=== PATIENT | female | born 1955 | race Caucasian/White ===

== ENCOUNTER 2018-02-12 18:04 | Emergency (ER) | payer OTHER ==
[~2018-02-12] VITALS: Ht 167.6 cm; Wt 72.6 kg
[~2018-02-12 18:04] MED LIST: AMITIZA24 MCG PO; CELEBREX100 MG PO; EFFEXOR XR150 MG PO; ESTRADIOL0.5 MG PO; LEVOTHYROXINE75 MCG PO; NUVIGIL150 MG PO; SEROQUEL100 MG PO; TRIAMTERENE-HCTZ1 EA PO
[2018-02-12] MEDS ORDERED: HYDROCODONE/APAP 7.5MG-325MG 1 EA TAB PO PRN (18:30)
[2018-02-12 20:53] LABS: BASOPHILS % 0.6 % (0.0-1.0); EOSINOPHILS # (AUTO) 0.1 (0.0-0.4); EOSINOPHILS % 1.5 % (0.0-6.0); HEMATOCRIT 39.1 % (34.2-44.1); HEMOGLOBIN 13.1 g/dL (12.0-16.0); LYMPHOCYTES # (AUTO) 1.9 (1.0-3.2); LYMPHOCYTES % 27.3 % (18.0-39.1); MEAN CORPUSCULAR HEMOGLOBIN 31.9 pg (28-32); MEAN CORPUSCULAR HGB CONC 33.5 g/dL (31-35); MEAN CORPUSCULAR VOLUME 95.1 fL (81-99); MONOCYTES # (AUTO) 0.7 (0.2-0.8); MONOCYTES % 9.6 % (4.4-11.3); NEUTROPHILS # (AUTO) 4.2 (2.1-6.9); NEUTROPHILS % 60.7 % (38.7-80.0); PLATELET COUNT 261 x10e3/uL (140-360); RED BLOOD COUNT 4.11 x10e6/uL (3.6-5.1); RED CELL DISTRIBUTION WIDTH 13.1 % (11.7-14.4)
[2018-02-12 21:13] LABS: ALANINE AMINOTRANSFERASE 16 IU/L (0-55); ALBUMIN 3.6 g/dL (3.5-5.0); ALBUMIN/GLOBULIN RATIO 0.9 (0.8-2.0); ALKALINE PHOSPHATASE 73 IU/L (40-150); ANION GAP 11.4 mmol/L (8-16); BLOOD UREA NITROGEN 13 mg/dL (7-26); BUN/CREATININE RATIO 18 (6-25); CALCIUM 9.5 mg/dL (8.4-10.2); CARBON DIOXIDE 28 mmol/L (22-29); CHLORIDE 101 mmol/L (98-107); CREATININE, SERUM 0.72 mg/dL (0.57-1.11); EST GLOMERULAR FILTRATION RATE > 60 ML/MIN (60-); GLUCOSE 87 mg/dL (74-118); POTASSIUM 3.4 mmol/L (3.5-5.1); SODIUM 137 mmol/L (136-145)
[2018-02-12] MEDS ORDERED: SODIUM CHLORIDE 0.9% 50ML 50 ML ONE (21:40)
[2018-02-12] MEDS ORDERED: IOPAMIDOL 370 MG/ML 200 ML INFUS..BTL INJ ONE (21:41)
--- NOTE | 2018-02-12 22:16 | Diagnostic Imaging Report ---
Exam: Right hand CT with IV contrast Indication: Right hand cellulitis Comparison: None Findings: CT of the right hand using routine MSK protocol was performed after the administration of 100 cc Isovue-370. Sagittal and coronal reformations were provided for evaluation. Cystic degenerative changes of the wrist and metacarpal interphalangeal joints, predominantly of the first metacarpal interphalangeal joint. No fractures. No radiopaque foreign bodies. No evidence of an abscess. Small joint effusion first metacarpal interphalangeal joint. Impression: 1. No evidence of an abscess. 2. Cystic degenerative changes of the wrist, most prominent at the first metacarpocarpal joint with associated small joint effusion. Signed by: Dr. Charmaine Ambrocio M.D. on 02/12/2018 10:12 PM
[2018-02-12 22:31] VITALS: BP 149/81
== END 2018-02-12 22:42 | disposition home or self-care (01) ==
LOC: ER 18:04
DX: L03.113 Cellulitis of right upper limb (principal)
CPT/HCPCS: 36415; 73201; 80053; 84550; 85025; 99284; Q9967

== ENCOUNTER → 2018-03-27 | Outpatient (CLI) | payer OTHER ==
--- NOTE | 2018-03-27 14:32 | Diagnostic Imaging Report ---
PROCEDURE:US GALLBLADDER COMPARISON:[facility], US, US GALLBLADDER, 01/03/2013, 11:35. INDICATIONS:RUQ Pain for months TECHNIQUE: Broussard-scale and color doppler transverse and longitudinal images of the right upper quadrant of the abdomen were obtained. FINDINGS: Liver: 14.2 cm in right mid-clavicular line. Normal echogenicity. No masses. Main portal vein: 0.9 cm, hepatopetal flow Gallbladder: Mild mobile, echogenic non-shadowing debris is noted in the gallbladder lumen, which may represent a small amount of sludge. No echogenic stones. No wall thickening or pericholecystic fluid. Common Bile Duct: 0.3 cm Sonographic Alonso's sign: Negative Right kidney: 9.7 cm. Normal echogenicity. No solid masses or hydronephrosis. Pancreas: The visualized portions of the neck and proximal body are unremarkable. Inferior vena cava: Patent Aorta: Within normal limits Ascites: None in the right upper quadrant of the abdomen. CONCLUSION: 1. Findings likely represent minimal gallbladder sludge. No echogenic stones, wall thickening, or pericholecystic fluid. No sonographic evidence of cholecystitis. Sb Charlton M.D. Dictated by: Sb Charlton M.D. on 03/27/2018 at 14:35 Electronically approved by: Sb Charlton M.D. on 03/27/2018 at 14:35
== END ==
LOC: US 13:51
PROVIDERS: ATTEND Internal Medicine Gastroenterology
DX: R10.11 Right upper quadrant pain (principal)
CPT/HCPCS: 76705

== ENCOUNTER → 2018-03-29 | Outpatient (CLI) | payer OTHER ==
[~2018-03-29] MED LIST changes: +SINCALIDE 3 MCG/VIAL INJ ONE
--- NOTE | 2018-03-29 16:59 | Diagnostic Imaging Report ---
Hepatobiliary Scan: RUQ abdominal pain Report: Following intravenous administration of 6.1 millicuries of Tc-99m mebrofenin, dynamic images of the abdomen in the anterior projection were obtained through 55 minutes. Sincalide (CCK analog) 1.6 micrograms was administered intravenously over 30 minutes with additional imaging for determination of gallbladder ejection fraction. Perfusion to the liver is normal. Extraction of tracer from the blood pool by the liver parenchyma is normal. Tracer is seen promptly within the biliary tract. The gallbladder begins to fill by 45 minutes post-injection of tracer and fills adequately. Tracer is seen in the small bowel by 15 minutes. The gallbladder ejection fraction with administration of sincalide is 68% (normal greater than 40%). Impression: 1. Filling of the gallbladder excludes the diagnosis of acute cystic duct obstruction/acute cholecystitis. 2. Normal gallbladder ejection fraction of 68% does not support the clinical diagnosis of chronic cholecystitis/gallbladder dyskinesia. Signed by: Dr. Aleyda Hawthorne M.D. on 03/29/2018 4:56 PM
== END ==
LOC: NM 07:33
PROVIDERS: ATTEND Internal Medicine Gastroenterology
DX: R10.11 Right upper quadrant pain (principal)
CPT/HCPCS: 78227; A9537; J2805

== ENCOUNTER 2019-07-13 15:24 | Observation (INO) | payer OTHER ==
[~2019-07-13] VITALS: Ht 167.6 cm; Wt 73.9 kg
[~2019-07-13 15:24] MED LIST changes: -SINCALIDE 3 MCG/VIAL INJ ONE
--- OUTSIDE RECORDS SUMMARY | 2019-07-13 15:28 | XMS REPORT | Continuity of Care Document ---
Author Author [facility] Address Unknown Phone Unavailable Care Team Providers Care Retail Supervisor Name Role Phone Expert TA Information [employer] Unavailable Unavailable Problems Problem Status Onset Date Classification Date Reported Comments Source Polyarthralgia Active Problem 05/29/2014 Braden Rios Unspecified vitamin D deficiency Active Diagnosis 04/25/2014 Braden Rios Pain in joint, hand Active Diagnosis 04/25/2014 Braden Rios Pain in joint, pelvic region and thigh Active Diagnosis 04/25/2014 Braden Rios Medications Medication Details Route Status Patient Instructions Ordering Provider Order Date Source Cyclobenzaprine HCl 1 tablet Orally Active 10 MG Orally Three times a day Janay Rios Seroquel 1 tablet at bedtime Orally Active 100 MG Orally Once a day Janay Rios Amitiza 1 capsule with food Orally Active 24 MCG Orally Twice a day Janay Rios Celebrex 1 capsule Orally Active 200 MG Orally Once a day Janay Rios Estradiol 1 tablet Orally Active 2 MG Orally Daily for Three Weeks, 1 Week off Janay Rios Effexor XR 1 capsule with food Orally Active 150 MG Orally Once a day Janay Rios Allergies, Adverse Reactions, Alerts Substance Category Reaction Severity Reaction type Status Date Reported Comments Source N.K.D.A. Adverse Reaction Info Not Available Adverse Reaction Active 04/16/2014 Braden Rios Immunizations No Data Provided for This Section Results No Data Provided for This Section Pathology Reports No Data Provided for This Section Diagnostic Reports No Data Provided for This Section Consultation Notes No Data Provided for This Section Discharge Summaries No Data Provided for This Section History and Physicals No Data Provided for This Section Vital Signs Vital Sign Value Date Comments Source Weight 169 04/16/2014 Braden Rios Height 65 04/16/2014 Braden Rios Temperature Oral (F) 97.6 F 04/16/2014 Braden Rios Heart Rate 80 04/16/2014 Braden Rios Diastolic (mm Hg) 84 04/16/2014 Braden Rios Systolic (mm Hg) 116 04/16/2014 Braden Rios Encounters Location Location Details Encounter Type Encounter Number Reason For Visit Attending Provider ADM Date DC Date Status Source Kris Rios MD [facility] [id number] 04/16/2014 04/16/2014 Braden Rios MD [facility] [id number] 04/16/2014 04/16/2014 Braden Rios MD PT DENIED APPT [id number] 05/23/2014 05/23/2014 Braden Rios Procedures No Data Provided for This Section Assessment and Plan No Data Provided for This Section Plan of Care No Data Provided for This Section Social History Social History Date Source Social History ElementQualifiersDate Reported Tobacco Use: . Are you a:: former smoker , How long has it been since you last smoked?: > 10 years April 16, 2014 Caffeine: yes. 1-2, cups/day April 16, 2014 Exercise: yes. Stationary Bike April 16, 2014 Alcohol: socially. April 16, 2014 04/16/2014 Braden Rios Family History No Data Provided for This Section Advance Directives No Data Provided for This Section Functional Status No Data Provided for This Section
--- OUTSIDE RECORDS SUMMARY | 2019-07-13 15:28 | XMS REPORT ---
Author Author Kris Rios [facility] [employer] Address Unknown Phone Unavailable Care Team Providers Care Seo Expert Name Role Phone Kris Rios Unavailable Encounters Encounter Location Date [facility] Kris Rios MD April 16, 2014 PT DENIED APPT Kris Rios MD May 23, 2014 Problems Problem Type Condition ICD-9 Code Onset Dates Condition Status Problem Polyarthralgia 719.49 Active Social History Social History Element Qualifiers Date Reported Tobacco Use: . Are you a:: former smoker , How long has it been since you last smoked?: > 10 years April 16, 2014 Caffeine: yes. 1-2, cups/day April 16, 2014 Exercise: yes. Stationary Bike April 16, 2014 Alcohol: socially. April 16, 2014 Summary Purpose eClinicalWorks Submission
--- OUTSIDE RECORDS SUMMARY | 2019-07-13 15:28 | XMS REPORT ---
Author Author [facility] Address Unknown Phone Unavailable Care Team Providers Care Regulatory Affairs Strategy Specialist Name Role Phone FELIPE ABURTO Unavailable Unavailable Lolis RAYMUNDO Unavailable Unavailable Problems This patient has no known problems. Allergies, Adverse Reactions, Alerts This patient has no known allergies or adverse reactions. Medications This patient has no known medications. Results Test Description Test Time Test Comments Text Results Atomic Results Result Comments HEPTOBILIARY W PHARM 2018-03-29 16:54:00 [place] [address] Patient Name: KAISER NORRIS MR #: [id number] : 1955 Age/Sex: 62/F Req #: [id number] Adm Physician: Ordered by: FELIPE ABURTO MD Report #: [id number] Location: [place] Room/Bed: Procedure: [id number] NM/HEPTOBILIARY W PHARM Exam Date: 03/29/18 Exam Time: 0815 REPORT STATUS: Signed Hepatobiliary Scan: RUQ abdominal pain Report: Following intravenous administration of 6.1 millicuries of Tc-99m mebrofenin, dynamic images of the abdomen in the anterior projection were obtained through 55 minutes. Sincalide (CCK analog) 1.6 micrograms was administered intravenously over 30 minutes with additional imaging for determination of gallbladder ejection fraction. Perfusion to the liver is normal. Extraction of tracer from the blood pool by the liver parenchyma is normal. Tracer is seen promptly within the biliary tract. The gallbladder begins to fill by 45 minutes post-injection of tracer and fills adequately. Tracer is seen in the small bowel by 15 minutes. The gallbladder ejection fraction with administration of sincalide is 68% (normal greater than 40%). Impression: 1. Filling of the gallbladder excludes the diagnosis of acute cystic duct obstruction/acute cholecystitis. 2. Normal gallbladder ejection fraction of 68% does not support the clinical diagnosis of chronic cholecystitis/gallbladder dyskinesia. Signed by: Dr. Carie Hawthorne M.D. on 03/29/2018 4:56 PM Dictated By: CARIE HAWTHORNE MD 55 Transcribed By: DARLENE on 03/29/181655 COPY TO: FELIPE ABURTO MD US GALLBLADDER 2018-03-27 14:35:00 [place] [address] Patient Name: KAISER NORRIS MR #: [id number] : 1955 Age/Sex: 62/F Req #: [id number] Adm Physician: Ordered by: FELIPE ABURTO MD Report #: [id number] Location: Room/Bed: Procedure: [id number] US/US GALLBLADDER Exam Date: Exam Time: REPORT STATUS: Signed PROCEDURE: US GALLBLADDER COMPARISON: [facility], US, US GALLBLADDER, 01/03/2013, 11:35. INDICATIONS: RUQ Pain for months TECHNIQUE: Broussard- scale and color doppler transverse and longitudinal images of the right upper quadrant of the abdomen were obtained. FINDINGS: Liver: 14.2 cm in right mid-clavicular line. Normal echogenicity. No masses. Main portal vein: 0.9 cm, hepatopetal flow Gallbladder: Mild mobile, echogenic non- shadowing debris is noted in the gallbladder lumen, which may represent a small amount of sludge. No echogenic stones. No wall thickening or pericholecystic fluid. Common Bile Duct: 0.3 cm Sonographic Alonso's sign: Negative Right kidney: 9.7 cm. Normal echogenicity. No solid masses or hydronephrosis. Pancreas: The visualized portions of the neck and proximal body are unremarkable. Inferior vena cava: Patent Aorta: Within normal limits Ascites: None in the right upper quadrant of the abdomen. CONCLUSION: 1. Findings likely represent minimal gallbladder sludge. No echogenic stones, wall thickening, or pericholecystic fluid. No sonographic evidence of cholecystitis. Alyse Charlton M.D. Dictated b y: Alyse Charlton M.D. on 03/27/2018 at 14:35 Electronically approved by: Alyse Charlton M.D. on 03/27/2018 at 14:35 Dictated By: ALYSE CHARLTON MD 1435 Transcribed By: DAVID on 03/27/18 1435 COPY TO: FELIPE ABUROT MD CT HAND RIGHT W [place] [address] Patient Name: KAISER NORRIS MR #: [id number] : 1955 Age/Sex: 62/F Req #: [id number] Adm Physician: Ordered by: HALEY CRUMP PROJECT PRODUCT MANAGER Report #: [id number] Location: ER Room/Bed: Procedure: [id number] CT/CT HAND RIGHT W Exam Date: Exam Time: REPORT STATUS: Signed Exam: Right hand CT with IV contrast Indication: Right hand cellulitis Comparison: None Findings: CT of the right hand using routine MSK protocol was performed after the administration of 100 cc Isovue-370. Sagittal and coronal reformations were provided for evaluation. Cystic degenerative changes of the wrist and metacarpal interphalangeal joints, predominantly of the first metacarpal interphalangeal joint. No fractures. No radiopaque foreign bodies. No evidence of an abscess. Small joint effusion first metacarpal interphalangeal joint. Impression: 1. No evidence of an abscess. 2. Cystic degenerative changes of the wrist, most prominent at the first metacarpocarpal joint with associated small joint effusion. Signed by: Dr. Unruly Saini M.D. on 02/12/2018 10:12 PM Dictated By: UNRULY SAINI MD 11 Transcribed By: DARLENE on 02/12/182211 COPY TO: HALEY CRUMP NP
--- OUTSIDE RECORDS SUMMARY | 2019-07-13 15:28 | XMS REPORT ---
Author Author Olivier Gustafson Organization [employer] Address Unknown Phone Unavailable Care Team Providers Care Diet Clerk Name Role Phone Olivier Gustafson CP Unavailable Allergies, Adverse Reactions, Alerts Substance Reaction Event Type N.K.D.A. Info Not Available Non Drug Allergy Encounters Encounter Location Date [facility] Kris Rios MD April 16, 2014 Problems Problem Type Condition ICD-9 Code Onset Dates Condition Status Assessment Polyarthralgia 719.49 Active Assessment Unspecified vitamin D deficiency 268.9 Active Problem Polyarthralgia 719.49 Active Assessment Pain in joint, hand 719.44 Active Assessment Pain in joint, pelvic region and thigh 719.45 Active Medications Medication Code System Code Instructions Start Date End Date Status Dosage Cyclobenzaprine HCl [facility] [address]-32 10 MG Orally Three times a day Active 1 tablet Seroquel [facility] [address]-50 100 MG Orally Once a day Active 1 tablet at bedtime Amitiza [facility] [address]-13 24 MCG Orally Twice a day Active 1 capsule with food Celebrex [facility] [address]-47 200 MG Orally Once a day Active 1 capsule Estradiol [facility] [address]-70 2 MG Orally Daily for Three Weeks, 1 Week off Active 1 tablet Effexor XR [facility] [address]-70 150 MG Orally Once a day Active 1 capsule with food Social History Social History Element Qualifiers Date Reported Tobacco Use: . Are you a:: former smoker , How long has it been since you last smoked?: > 10 years April 16, 2014 Caffeine: yes. 1-2, cups/day April 16, 2014 Exercise: yes. Stationary Bike April 16, 2014 Alcohol: socially. April 16, 2014 Vital Signs Date/Time: April 16, 2014 Weight 169 lbs Height 65 in Temperature 97.6 F Cardiac Monitoring Heart Rate 80 /min Blood Pressure Diastolic 84 mm Hg Blood Pressure Systolic 116 mm Hg Summary Purpose eClinicalWorks Submission
[2019-07-13] MEDS ORDERED: SODIUM CHLORIDE 0.9% 1000ML 1,000 ML IV STA (16:23)
[2019-07-13 16:40] LABS: BASOPHILS % 0.4 % (0.0-1.0); EOSINOPHILS # (AUTO) 0.1 (0.0-0.4); EOSINOPHILS % 1.6 % (0.0-6.0); HEMATOCRIT 40.5 % (34.2-44.1); LYMPHOCYTES # (AUTO) 1.8 (1.0-3.2); LYMPHOCYTES % 24.1 % (18.0-39.1); MEAN CORPUSCULAR HEMOGLOBIN 32.3 pg (28-32); MEAN CORPUSCULAR HGB CONC 34.6 g/dL (31-35); MEAN CORPUSCULAR VOLUME 93.5 fL (81-99); MONOCYTES # (AUTO) 0.6 (0.2-0.8); MONOCYTES % 7.8 % (4.4-11.3); NEUTROPHILS # (AUTO) 4.9 (2.1-6.9); NEUTROPHILS % 65.8 % (38.7-80.0); PLATELET COUNT 262 x10e3/uL (140-360); RED BLOOD COUNT 4.33 x10e6/uL (3.6-5.1); RED CELL DISTRIBUTION WIDTH 12.7 % (11.7-14.4)
[2019-07-13 16:53] LABS: ALANINE AMINOTRANSFERASE 63 IU/L (0-55); ALBUMIN 3.9 g/dL (3.5-5.0); ALKALINE PHOSPHATASE 82 IU/L (40-150); BLOOD UREA NITROGEN 19 mg/dL (7-26); BUN/CREATININE RATIO 21 (6-25); CALCIUM 10.4 mg/dL (8.4-10.2); CARBON DIOXIDE 26 mmol/L (22-29); CHLORIDE 102 mmol/L (98-107); CREATINE KINASE 132 IU/L (29-168); CREATININE, SERUM 0.89 mg/dL (0.57-1.11); EST GLOMERULAR FILTRATION RATE > 60 ML/MIN (60-); GLUCOSE 107 mg/dL (74-118); SODIUM 139 mmol/L (136-145)
[2019-07-13 17:02] LABS: BILIRUBIN,URINE NEGATIVE (NEGATIVE); CLARITY,URINE SL CLOUDY (CLEAR); COLOR,URINE YELLOW (YELLOW); KETONES,URINE NEGATIVE (NEGATIVE); LEUKOCYTE ESTERASE ,URINE NEGATIVE (NEGATIVE); NITRITE,URINE NEGATIVE (NEGATIVE); PROTEIN,URINE DIPSTICK NEGATIVE (NEGATIVE); URINE UROBILINOGEN 0.2 mg/dL (0.2 - 1)
[2019-07-13 17:11] LABS: BACTERIA,URINE FEW /HPF; EPITHELIAL CELLS,URINE FEW /LPF; RBC,URINE 0-5 /HPF (0-5); WBC,URINE (MAN) 0-5 /HPF (0-5)
[2019-07-13] MEDS ORDERED: MORPHINE SULFATE INJ 4 MG/ML INJ 1ML IV PRN (18:30)
[2019-07-13] MEDS ORDERED: ONDANSETRON HCL INJ 2MG/ML 2ML 2 MG/ML VIAL IV PRN (18:30)
--- OUTSIDE RECORDS SUMMARY | 2019-07-13 18:33 | XMS REPORT | Continuity of Care Document ---
Author Author [facility] Address Unknown Phone Unavailable Care Team Providers Care In Processing Instructor Name Role Phone [employer] Information [employer] Unavailable Unavailable Problems Problem Status Onset Date [...] Status Source Kris Rios MD [facility] [id number] 04/16/2014 04/16/2014 Braden Rios MD [facility] [id number] 04/16/2014 04/16/2014 Braden Rios MD PT DENIED APPT [id number] 05/23/2014 05/23/2014 Braden Rios Procedures No Data [...]
--- NOTE | 2019-07-13 18:34 | Diagnostic Imaging Report ---
EXAMINATION: CHEST SINGLE (PORTABLE) INDICATION: Hypertension, dizziness COMPARISON: None FINDINGS: AP view TUBES and LINES: None. LUNGS: Lungs are well inflated. Lungs are clear. There is no evidence of pneumonia or pulmonary edema. PLEURA: No pleural effusion or pneumothorax. HEART AND MEDIASTINUM: The cardiomediastinal silhouette is unremarkable. BONES AND SOFT TISSUES: No acute osseous lesion. Soft tissues are unremarkable. UPPER ABDOMEN: No free air under the diaphragm. IMPRESSION: No acute thoracic radiographic abnormality. Signed by: Shankar Ramirez DO on 07/13/2019 6:31 PM
--- NOTE | 2019-07-13 19:54 | Diagnostic Imaging Report ---
EXAMINATION: Head CT HISTORY: Dizziness, hypertension COMPARISON: None. TECHNIQUE: Multidetector axial images were obtained without contrast from the foramen magnum to the vertex . The images were reconstructed using brain and bone algorithms. Thin section brain images were reformatted into coronal and sagittal planes. Image quality: Motion/streaking artifact limits the evaluation of the skull base and posterior cranial fossa. Dose modulation, iterative reconstruction, and/or weight based adjustment of the mA/kV was utilized to reduce the radiation dose to as low as reasonably achievable. FINDINGS: Parenchyma: 1. No abnormal densities. 2. No mass or hemorrhage. No CT evidence of acute territorial vascular insult. Extra-axial spaces:No abnormal density. No extra-axial fluid collections Brain volume: Normal for age. Ventricles: No hydrocephalus or displacement. Arteries: No density suggestive of thrombus. Dural sinuses: No abnormal density. Extra-axial spaces: No abnormal density. Foramen magnum: No mass, Chiari malformation, or basilar invagination. Sella: No obvious mass. Paranasal/mastoid sinuses: Imaged portions unremarkable. Skull/Scalp: No lytic or blastic lesions. No fractures. IMPRESSION: No acute intracranial abnormalities, particularly no hemorrhage. Signed by: Dr. Lorelei Gardner M.D. on 07/13/2019 7:50 PM
--- NOTE | 2019-07-13 20:03 | NUR ---
PT ARRIVED BY WHEELCHAIR TO ROOM 110. PT IS AAOX3, RR EVEN AND NON-LABORED, ON ROOM AIR. NO S/SX OF DISTRESS NOTED. ORIENTED PT TO HOSPITAL ROOM, CALL LIGHT, PHONE, BED CONTROLS AND LIGHTS. LEFT PT LAYING SEMI FOWLERS IN BED, BED IN LOW LOCKED POSITION, SIDE RAILS UPX2, CALL LIGHT AND PHONE WITHIN REACH. FAMILY AT BEDSIDE.
--- NOTE | 2019-07-13 20:59 | NUR ---
PAGE PLACED FOR MD RAHMAN CONCERNING CONSULTATION. SPOKE WITH MD VARGAS CONCERNING CONSULTATION. NO NEW ORDERS AT THIS TIME.
[2019-07-13 21:00] VITALS: BP 160/83
[2019-07-13 22:00] VITALS: BP 160/83
[2019-07-13] MEDS ORDERED: LEVOTHYROXINE50 MCG PO (23:14)
[2019-07-13] MEDS ORDERED: LUNESTA2 MG PO (23:14)
[2019-07-13] MEDS ORDERED: PANTOPRAZOLE SO40 MG PO (23:14)
[2019-07-13] MEDS ORDERED: OXYBUTYNIN CHLOR5 MG PO (23:14)
[2019-07-13] MEDS ORDERED: IMITREX25 MG PO (23:14)
[2019-07-14 01:18] VITALS: BP 165/83
[2019-07-14 03:25] LABS: CREATINE KINASE 84 IU/L (29-168)
[2019-07-14 05:24] VITALS: BP 125/81
[2019-07-14 07:45] VITALS: BP 143/75
[2019-07-14 09:32] VITALS: BP 143/75
[2019-07-14 10:45] LABS: CREATINE KINASE 75 IU/L (29-168)
[2019-07-14 11:53] VITALS: BP 156/81
[2019-07-14] MEDS ORDERED: CELECOXIB 100 MG CAP PO PRN (12:45)
[2019-07-14] MEDS ORDERED: SUMATRIPTAN SUCCINATE 25 MG TAB PO PRN (12:45)
[2019-07-14] MEDS ORDERED: CELECOXIB 200 MG CAP PO PRN (14:00)
--- NOTE | 2019-07-14 14:17 | NUR ---
Per Dr. Hughes, cardiology, ok to discharge. Instructions to follow up with Dr. Beltran in 1 week.
--- NOTE | 2019-07-14 14:52 | NUR ---
Patient discharged via wheelchair to private auto in no signs of distress and no reports of pain.
--- NOTE | 2019-07-14 15:15 | NUR ---
Visit made by the Spiritual Care Department Pastoral Visitor, Heriberto Colmenares. PV provided pastoral presence, prayer, communion, hospitality, and supportive listening. Pastoral Visitor informed pt/family of the scope of Health Sciences Manager Services and availability. FRIDA BRICENO Batch Plant Operator Spiritual Care Department O: [phone] Pager: [phone] ([phone] number calling from)
--- NOTE | 2019-07-14 16:52 | Consultation ---
DATE OF CONSULTATION: 07/14/2019 Cardiology Consultation REQUESTING PHYSICIAN: Dr. Ledesma. REASON FOR CONSULTATION: Chest pain. HISTORY OF PRESENT ILLNESS: This is a 64-year-old woman with history of esophageal spasm, hyperlipidemia, and hypothyroidism, who presents with complaints of elevated blood pressure and chest pain. The patient reports she had shortness of breath and dizziness yesterday morning, which progressed through the day. Later in the day, she subsequently developed chest discomfort, which is described as a central twisting discomfort 6/10 in severity that lasted few minutes. She attributed this to her known esophageal spasm, which has been ongoing, which has been present for years. During this time she checked her blood pressure, noted it was elevated to the 180 systolic and therefore presented to the ER for further evaluation. Denies any orthopnea or PND, but does note she has had lower extremity edema with prolonged standing for the last few months. REVIEW OF SYSTEMS: Negative except as per HPI. PAST MEDICAL HISTORY: 1. Esophageal spasm. 2. Hyperlipidemia. 3. Hypothyroidism. PAST SURGICAL HISTORY: 1. Hysterectomy. 2. Knee surgery. 3. section. ALLERGIES: PLEASE SEE EMR. MEDICATIONS: Please see medication list. SOCIAL HISTORY: Reports a remote history of tobacco use. Occasional alcohol. No illicit drugs. FAMILY HISTORY: Pertinent for father with myocardial infarction and congestive heart failure as well as brother with myocardial infarction. PHYSICAL EXAMINATION: VITAL SIGNS: Temperature 95.6 degrees, pulse 75, respiratory rate 20, blood pressure 156/81, oxygen saturation 95% on room air. GENERAL: Well-developed, well-nourished woman, in no acute distress. HEENT: Normocephalic, atraumatic. Pupils are equal. No scleral icterus. NECK: Supple. No thyromegaly or cervical lymphadenopathy. No carotid bruits. LUNGS: Clear to auscultation bilaterally. No wheezes or crackles. CARDIOVASCULAR: Normal rate, regular rhythm. No murmur. Normal S1, S2. ABDOMEN: Soft nontender. EXTREMITIES: No edema. NEUROLOGIC: Nonfocal exam. LABORATORY DATA: WBC 7.42, hemoglobin 14, hematocrit 40.5, platelets 262. Sodium 139, potassium 4, chloride 102, CO2 of 26, BUN 19, and creatinine 0.89. Troponin is less than 0.001. BNP 12.9. EKG, normal sinus rhythm, moderate voltage criteria for LVH, may be normal variant. Chest x-ray, no acute thoracic or radiographic abnormality. IMPRESSION: 1. Chest pain. 2. Hypertension, uncontrolled. 3. Hyperlipidemia. 4. Hypothyroidism. RECOMMENDATIONS: The patient ruled out for myocardial infarction with serial cardiac biomarkers. Echocardiogram demonstrated normal LV systolic function. Recommend patient follow up with Dr. Beltran as an outpatient for further ischemic evaluation as well as addition of antihypertensive therapy. Given complaint of dizziness, carotid Doppler and outpatient telemetry monitoring could be considered as well. Thank you for this consult. We will continue to follow. Cher Walters MD ABS/MODL /[id number]
--- NOTE | 2019-07-14 18:53 | History and Physical ---
HISTORY OF PRESENT ILLNESS: The patient is a 64-year-old female with no past medical history, started having some dizziness and some difficulty swallowing and some chest pain, which she blames because of esophageal spasm apparently happened before. She is feeling fine now. No significant complaints. EKG is normal. Troponins are completely negative. Blood pressure was found to be high when she came to the emergency room. REVIEW OF SYSTEMS: CARDIOVASCULAR: She denies any chest pain or shortness of breath right now. She did have some chest pain yesterday and dizziness. RESPIRATORY: No shortness of breath. No cough. GASTROINTESTINAL: No nausea. No vomiting. No diarrhea. She had an episode of dysphagia when she had a chest pain also, which is completely resolved. She was told she has had esophageal spasm before. GENITOURINARY: No frequency. No dysuria. ALLERGIES: NOT ALLERGIC TO ANY MEDICATION. SOCIAL HISTORY: She used to smoke. She does not smoke. She drinks socially. PHYSICAL EXAMINATION: VITAL SIGNS: Blood pressure 156/81, temperature 95.6, heart rate 75 per minute, respiratory rate 20 per minute, O2 saturation 95%. HEART: Showed regular rhythm. Normal S1, S2 sound. LUNGS: Clear bilaterally. ABDOMEN: Soft. EXTREMITIES: Show no evidence of cyanosis or hematoma. DIAGNOSTIC DATA: EKG show normal sinus rhythm, no evidence of any ST-segment elevation or depression. Echocardiogram showed ejection fraction of 50%. No pericardial effusion. No evidence of any severe valvular abnormality. She has an LVH. She has mild aortic insufficiency. Mild mitral regurgitation and trace tricuspid regurgitation. Troponins x3 completely normal. IMPRESSION: 1. Chest pain. 2. Hypertensive emergency. PLAN OF TREATMENT: We are going to give her Norvasc 5 mg daily. She is going to be evaluated by Dr. Waters, toy assembly supervisor. We are going to start aspirin 81 mg daily. If cardiology is okay with discharge, she might be able to be discharged today and do an outpatient workup for chest pain. So far, everything chest pain is gone and EKG normal. Troponins are negative. MD KADE Dwyer/BEVERLEY /[id number]
[2019-07-14] MEDS ORDERED: ZOLPIDEM TARTRATE 5 MG TAB PO SCH (21:00)
--- NOTE | 2019-07-15 05:54 | Discharge Summary ---
This is a 64-year-old female with medical history positive for esophageal spasm, came here with chest pain, and dysphagia and dizziness, which had completely resolved. EKG is normal. Cardiac enzymes x3 completely negative. The patient had a history of esophageal spasm that sometimes can give her similar symptoms that mimic chest pain. PHYSICAL EXAMINATION: HEART: Showed regular rhythm. Normal S1, S2 sound. LUNGS: Clear bilaterally. ABDOMEN: Soft. VITAL SIGNS: Blood pressure 156/81, temperature 95.6, heart rate 75 per minute, respiratory rate is 20 per minute, oxygen saturation 95%. IMAGING: EKG, normal sinus rhythm, no evidence of any ST-segment elevation or depression. Troponins are completely normal. Rest of the blood work has been already detailed in my prior note in the history and physical. IMPRESSION: 1. Atypical chest pain most likely secondary to esophageal spasm. 2. Hypertensive emergency. 3. Elevated LFTs. PLAN OF TREATMENT: We are going to put her on Norvasc 5 mg daily and aspirin [address] Mejía, Cardiology, is going to see the patient. If cleared, she might be able to go home and do the rest of workup for chest pain as an outpatient. MD KADE Dwyer/[place] /[id number]
[2019-07-15] MEDS ORDERED: LEVOTHYROXINE SODIUM 100 MCG TAB PO SCH (06:00)
[2019-07-15] MEDS ORDERED: LEVOTHYROXINE SODIUM 50 MCG TAB PO SCH (06:00)
[2019-07-15] MEDS ORDERED: PANTOPRAZOLE SOD 40 MG TABEC PO SCH (07:30)
[2019-07-15] MEDS ORDERED: NON-FORMULARY MEDICATION (Venlafaxine Hcl (Effexor Xr) 150 MG) PO SCH (09:00)
[2019-07-15] MEDS ORDERED: VENLAFAXINE HCL 75 MG CAPCR PO SCH (09:00)
[2019-07-15] MEDS ORDERED: OXYBUTYNIN CHLORIDE XL 5 MG TAB PO SCH (09:00)
[2019-07-15] MEDS ORDERED: OXYBUTYNIN CHLORIDE 5 MG TAB PO SCH (09:00)
[2019-07-15] MEDS ORDERED: NON-FORMULARY MEDICATION (Eszopiclone (Lunesta) 2 MG) PO SCH (09:00)
== END 2019-07-14 14:52 | disposition home or self-care (01) ==
LOC: ER 15:24 → ERHOLD 18:22 → MED/SURG 20:02
DX: I16.1 Hypertensive emergency (principal); R07.89 Other chest pain; R79.89 Other specified abnormal findings of blood chemistry; E03.9 Hypothyroidism, unspecified; I10 Essential (primary) hypertension; F32.9 Major depressive disorder, single episode, unspecified; M19.90 Unspecified osteoarthritis, unspecified site
CPT/HCPCS: 36415 ×2; 70450; 71045; 80053; 81001; 82550 ×2; 82553 ×2; 83880; 84484 ×2; 85025; 93005; 93306; 99285; G0378 ×2; J7030

== ENCOUNTER → 2020-01-23 | Day surgery (SDC) | payer OTHER ==
[~2020-01-23] MED LIST changes: +AMLODIPINE BESYL5 MG PO; +ESTRADIOL2 MG PO; +FENTANYL CITRATE/PF 100MCG/2 ML INJ ONE; +IMITREX25 MG PO; +LEVOTHYROXINE50 MCG PO; +LUNESTA2 MG PO; +MIDAZOLAM HCL 2 MG/2 ML VIAL ONE; +OXYBUTYNIN CHLOR5 MG PO; +PANTOPRAZOLE 40 MG 10ML VIAL ONE; +PANTOPRAZOLE SO40 MG PO; +PROPOFOL IV EMULSION 10 MG/ML 50 ML VIAL ONE; +TRIAMTERENE PO
[2020-01-23 13:00] VITALS: BP 128/81
--- NOTE | 2020-01-23 13:36 | Operative Report ---
DATE OF PROCEDURE: 01/23/2020 SURGEON: Silviano Ledesma MD PROCEDURE: Esophagogastroduodenoscopy with polypectomy and esophageal dilatation and biopsies. INDICATIONS FOR EGD: Epigastric pain, dysphagia, acid reflux, history of dark stools. MEDICATIONS: The patient was done under MAC, please see anesthesiologist's note. PROCEDURE IN DETAIL: With the patient in left lateral decubitus position, a flexible fiberoptic Olympus gastroscope was introduced into the esophagus under direct visualization without any difficulty. There was some patchy erythema noted in the distal esophagus. There was a mild stricture noted at the GE junction that was dilated to size 52-[place]. The scope was then advanced with ease into the stomach. Mucosa overlying the antrum and the body revealed some patchy erythema and moderate edema, and biopsies were obtained, sent to stain for H pylori. Several minute hyperplastic appearing polyps were noted in the body of the stomach and some were partially excised with the cold biopsy forceps. Pylorus was of normal contour and shape, it was intubated with ease and the scope was advanced all the way to the second portion of the duodenum. Biopsies were obtained from the proximal second portion and the duodenal bulb to rule out sprue. The scope was then withdrawn back into the stomach and retroflexed and mucosa overlying the fundus and the cardia appeared to be within normal limits. The scope was then straightened out, it was subsequently withdrawn. The patient tolerated the procedure well. IMPRESSION: 1. Distal esophagitis. 2. Esophageal stricture, gastroesophageal junction, dilated to size 52-[place]. 3. Gastritis, biopsied, biopsies sent to stain for Helicobacter pylori. 4. Gastric polyps, body, some partially excised with cold biopsy forceps. 5. Rule out sprue. PLAN: Follow up histology. Increase Protonix to 40 mg one p.o. before meals b.i.d. Silviano Ledesma MD [facility] [place][id number] cc: Manuel Kurtz DO
== END | disposition home or self-care (01) ==
LOC: OR 10:47
PROVIDERS: ATTEND Internal Medicine Gastroenterology
DX: K21.0 Gastro-esophageal reflux disease with esophagitis (principal); K31.7 Polyp of stomach and duodenum; K29.50 Unspecified chronic gastritis without bleeding; K22.2 Esophageal obstruction; K28.9 Gastrojejunal ulcer, unspecified as acute or chronic, without hemorrhage or perforation; I10 Essential (primary) hypertension; E03.9 Hypothyroidism, unspecified; F32.9 Major depressive disorder, single episode, unspecified; Z87.891 Personal history of nicotine dependence; Z68.27 Body mass index [BMI] 27.0-27.9, adult
CPT/HCPCS: 43239; 43450; 93005; C9113; J2250; J2704; J3010

== ENCOUNTER → 2021-08-27 | Day surgery (SDC) | payer MEDICARE, OTHER ==
[2021-08-25 10:25] LABS: BASOPHILS % 0.7 % (0.0-1.0); EOSINOPHILS # (AUTO) 0.1 (0.0-0.4); EOSINOPHILS % 2.3 % (0.0-6.0); HEMATOCRIT 41.1 % (34.2-44.1); HEMOGLOBIN 13.4 g/dL (12.0-16.0); LYMPHOCYTES # (AUTO) 1.5 (1.0-3.2); MEAN CORPUSCULAR HEMOGLOBIN 31.5 pg (28-32); MEAN CORPUSCULAR HGB CONC 32.6 g/dL (31-35); MEAN CORPUSCULAR VOLUME 96.7 fL (81-99); MONOCYTES # (AUTO) 0.6 (0.2-0.8); MONOCYTES % 10.1 % (4.4-11.3); NEUTROPHILS # (AUTO) 3.4 (2.1-6.9); NEUTROPHILS % 59.7 % (38.7-80.0); PLATELET COUNT 256 x10e3/uL (140-360); RED BLOOD COUNT 4.25 x10e6/uL (3.6-5.1); RED CELL DISTRIBUTION WIDTH 12.5 % (11.7-14.4)
[~2021-08-27] MED LIST changes: +CELEBREX200 MG PO; +GABAPENTIN300 MG PO; +GLUCAGON FOR INJ 1 MG VIAL ONE; +HYOSCYAMINE SULFATE 0.5 MG/ML INJ ONE; +LIDOCAINE HCL 2% LOCAL INJ 5 ML SDV VIAL INJ ONE; +METHYLPHENIDATE10 MG PO; -PANTOPRAZOLE 40 MG 10ML VIAL ONE; +PROPOFOL IV EMULSION 10 MG/ML 20 ML VIAL ONE; -PROPOFOL IV EMULSION 10 MG/ML 50 ML VIAL ONE; +PROPOFOL IV EMULSION 50 ML IV ONE
[2021-08-27 16:35] VITALS: BP 136/86
== END | disposition home or self-care (01) ==
LOC: OR 11:29
PROVIDERS: ATTEND Internal Medicine Gastroenterology
DX: R13.10 Dysphagia, unspecified (principal); K62.1 Rectal polyp; K31.7 Polyp of stomach and duodenum; K29.50 Unspecified chronic gastritis without bleeding; K58.9 Irritable bowel syndrome, unspecified; K59.00 Constipation, unspecified; K62.89 Other specified diseases of anus and rectum; K64.8 Other hemorrhoids; E03.9 Hypothyroidism, unspecified; K21.9 Gastro-esophageal reflux disease without esophagitis; I10 Essential (primary) hypertension; F32.A Depression, unspecified; F98.8 Other specified behavioral and emotional disorders with onset usually occurring in childhood and adolescence; Z01.810 Encounter for preprocedural cardiovascular examination; Z01.812 Encounter for preprocedural laboratory examination; Z20.822 Contact with and (suspected) exposure to COVID-19; Z79.899 Other long term (current) drug therapy; Z68.27 Body mass index [BMI] 27.0-27.9, adult
CPT/HCPCS: 36415; 43239; 43450; 45384; 85025; 93005; C9113; J1610; J1980; J2001; J2250; J2704 ×2; J3010; U0002; 45378

== ENCOUNTER → 2022-02-14 | Outpatient (CLI) | payer MEDICARE ==
[~2022-02-14] MED LIST changes: -FENTANYL CITRATE/PF 100MCG/2 ML INJ ONE; -GLUCAGON FOR INJ 1 MG VIAL ONE; -HYOSCYAMINE SULFATE 0.5 MG/ML INJ ONE; -LIDOCAINE HCL 2% LOCAL INJ 5 ML SDV VIAL INJ ONE; -MIDAZOLAM HCL 2 MG/2 ML VIAL ONE; -PROPOFOL IV EMULSION 10 MG/ML 20 ML VIAL ONE; -PROPOFOL IV EMULSION 50 ML IV ONE
== END ==
LOC: MRI 08:37
PROVIDERS: ATTEND Family Medicine
DX: M47.812 Spondylosis without myelopathy or radiculopathy, cervical region (principal); M54.2 Cervicalgia
CPT/HCPCS: 72141

== ENCOUNTER 2022-03-17 06:21 | Observation (INO) | payer MEDICARE ==
[2022-03-15 15:38] LABS: BASOPHILS # (AUTO) 0.1 (0.0-0.1); BASOPHILS % 0.8 % (0.0-1.0); EOSINOPHILS # (AUTO) 0.1 (0.0-0.4); EOSINOPHILS % 2.4 % (0.0-6.0); HEMATOCRIT 38.7 % (34.2-44.1); HEMOGLOBIN 12.6 g/dL (12.0-16.0); LYMPHOCYTES # (AUTO) 1.6 (1.0-3.2); LYMPHOCYTES % 27.1 % (18.0-39.1); MEAN CORPUSCULAR HGB CONC 32.6 g/dL (31-35); MEAN CORPUSCULAR VOLUME 98.2 fL (81-99); MONOCYTES # (AUTO) 0.5 (0.2-0.8); MONOCYTES % 8.8 % (4.4-11.3); NEUTROPHILS # (AUTO) 3.6 (2.1-6.9); NEUTROPHILS % 60.6 % (38.7-80.0); PLATELET COUNT 245 x10e3/uL (140-360); RED BLOOD COUNT 3.94 x10e6/uL (3.6-5.1); RED CELL DISTRIBUTION WIDTH 13.3 % (11.7-14.4)
[2022-03-15 15:50] LABS: INR 0.81
[2022-03-15 15:54] LABS: ANION GAP 13.6 mmol/L (8-16); CALCIUM 8.7 mg/dL (8.4-10.2); CREATININE, SERUM 0.87 mg/dL (0.57-1.11); POTASSIUM 3.6 mmol/L (3.5-5.1)
[~2022-03-17] VITALS: Ht 167.6 cm; Wt 77.1 kg
[2022-03-17] VITALS (7 sets, daily range): BP systolic 135–156; BP diastolic 65–88
[2022-03-17] MEDS ORDERED: LIDOCAINE 1% W/EPINEPHRINE 20 ML VIAL ONE (06:31)
[2022-03-17] MEDS ORDERED: Vancomycin IV 1 GM VIAL ONE (06:31)
[2022-03-17] MEDS ORDERED: THROMBIN FOR SOLN 5,000 UNIT VIAL ONE (06:31)
[2022-03-17] MEDS ORDERED: [UNRECOGNIZED DRUG - REMARK] PO (06:45)
[2022-03-17] MEDS ORDERED: HYDROCODON-ACE1 EA12 PO (08:28)
[2022-03-17] MEDS ORDERED: MAGNESIUM/ALUMINUM/SIMETHICONE 30 ML UDC PO PRN (08:30)
[2022-03-17] MEDS ORDERED: Morphine 4mg Syringe 4 MG/ML INJ IM PRN (08:30)
[2022-03-17] MEDS ORDERED: HYDROMORPHONE 2MG/ML 2 MG/ML ML IV PRN (08:30)
[2022-03-17] MEDS ORDERED: PROMETHAZINE HCL (IM) 25 MG/ML VIAL IM PRN (08:30)
[2022-03-17] MEDS ORDERED: ZOLPIDEM TARTRATE 5 MG TAB PO PRN (08:30)
[2022-03-17] MEDS ORDERED: CEPACOL SORE THROAT LOZENGES PO PRN (08:30)
[2022-03-17] MEDS ORDERED: CARISOPRODOL 350 MG TAB PO PRN (08:30)
[2022-03-17] MEDS ORDERED: HYDROMORPHONE 1MG/1ML INJ ONE (08:57)
[2022-03-17] MEDS: TRIAMTERENE 37.5 MG PO SCH (09:00)
[2022-03-17] MEDS ORDERED: SUGAMMADEX SODIUM 200 MG/2 ML VIAL IV ONE (09:56)
[2022-03-17] MEDS ORDERED: LIDOCAINE HCL 2% LOCAL INJ 5 ML SDV VIAL INJ ONE (09:56)
[2022-03-17] MEDS ORDERED: POVIDONE IODINE 0.05% 0.05 % ML PO ONE (09:56)
[2022-03-17] MEDS ORDERED: ACETAMINOPHEN 1000 MG/100 ML IV ONE (09:56)
[2022-03-17] MEDS ORDERED: PROPOFOL IV EMULSION 10 MG/ML 20 ML VIAL ONE (09:56)
[2022-03-17] MEDS ORDERED: MIDAZOLAM HCL 2 MG/2 ML VIAL ONE (09:56)
[2022-03-17] MEDS ORDERED: ROCURONIUM BROMIDE 10 MG/ML 5ML VIAL IV ONE (09:56)
[2022-03-17] MEDS ORDERED: DEXAMETHASONE SOD PHOS INJ 4 MG/ML SDV ONE (09:56)
[2022-03-17] MEDS ORDERED: LIDOCAINE HCL (LTA) 4 ML SOLN ONE (09:56)
[2022-03-17] MEDS ORDERED: ONDANSETRON HCL INJ 2MG/ML 2ML 2 MG/ML VIAL ONE (09:56)
[2022-03-17] MEDS ORDERED: SEVOFLURANE INHAL SOLN 250 ML PEN BTL ONE (09:56)
[2022-03-17] MEDS ORDERED: FENTANYL CITRATE/PF 100MCG/2 ML INJ ONE (09:56)
[2022-03-17] MEDS ORDERED: IBUPROFEN 800 MG/200 ML BAG IV ONE (09:56)
[2022-03-17] MEDS: OXYCODONE/ACETAMINOPHEN 5-325 1 EACH TABLET PO PRN ×2 (10:56→23:19)
[2022-03-17] MEDS: LACTATED RINGER'S 1,000 ML IV SCH ×3 (11:12→21:07)
[2022-03-17] MEDS: CELECOXIB 200 MG CAP PO SCH (11:18)
[2022-03-17] MEDS: PANTOPRAZOLE SOD 40 MG TABEC PO SCH (11:18)
[2022-03-17] MEDS: OXYBUTYNIN CHLORIDE 5 MG TAB PO SCH (11:18)
[2022-03-17] MEDS: ESTRADIOL 1 MG TAB PO SCH (11:18)
[2022-03-17] MEDS: ACETAMINOPHEN 325 MG TAB PO PRN ×2 (12:38→16:12)
[2022-03-17] MEDS: ONDANSETRON HCL INJ 2MG/ML 2ML 2 MG/ML VIAL IV PRN (16:01)
[2022-03-17] MEDS ORDERED: SCOPOLAMINE 1 MG PATCH TOP ONE (18:45)
[2022-03-17] MEDS ORDERED: [UNRECOGNIZED DRUG - OTHER] PO SCH (21:00)
[2022-03-18] VITALS: BP 146/81
[2022-03-18 00:20] VITALS: BP 146/81
[2022-03-18] MEDS: ONDANSETRON HCL INJ 2MG/ML 2ML 2 MG/ML VIAL IV PRN (02:17)
[2022-03-18] MEDS: ACETAMINOPHEN 325 MG TAB PO PRN (02:18)
[2022-03-18 04:00] VITALS: BP 149/79
[2022-03-18] MEDS ORDERED: LEVOTHYROXINE SODIUM 88 MCG TAB PO SCH (06:00)
[2022-03-18] MEDS: PANTOPRAZOLE SOD 40 MG TABEC PO SCH (06:10)
[2022-03-18] MEDS: LACTATED RINGER'S 1,000 ML IV SCH (06:10)
[2022-03-18 08:19] VITALS: BP 151/78
[2022-03-18] MEDS: TRIAMTERENE 37.5 MG PO SCH (09:00)
[2022-03-18] MEDS: ESTRADIOL 1 MG TAB PO SCH (09:00)
[2022-03-18] MEDS ORDERED: VENLAFAXINE HCL 75 MG CAPCR PO SCH (09:00)
[2022-03-18] MEDS: CELECOXIB 200 MG CAP PO SCH (09:00)
[2022-03-18] MEDS: OXYBUTYNIN CHLORIDE 5 MG TAB PO SCH (09:00)
[2022-03-18] MEDS: OXYCODONE/ACETAMINOPHEN 5-325 1 EACH TABLET PO PRN (10:18)
[2022-03-18 11:47] VITALS: BP 151/78
[2022-03-18 12:10] VITALS: BP 140/66
== END 2022-03-18 15:25 | disposition home or self-care (01) ==
LOC: OR 06:21 → PACU V 08:23 → MED/SURG 09:44
PROVIDERS: ADMIT Neurological Surgery; ATTEND Neurological Surgery
DX: M50.122 Cervical disc disorder at C5-C6 level with radiculopathy (principal); M47.22 Other spondylosis with radiculopathy, cervical region; I10 Essential (primary) hypertension; E78.5 Hyperlipidemia, unspecified; K21.9 Gastro-esophageal reflux disease without esophagitis; M81.0 Age-related osteoporosis without current pathological fracture; M85.80 Other specified disorders of bone density and structure, unspecified site; F32.A Depression, unspecified; E03.9 Hypothyroidism, unspecified; Z01.810 Encounter for preprocedural cardiovascular examination; Z01.812 Encounter for preprocedural laboratory examination; Z01.818 Encounter for other preprocedural examination; Z20.822 Contact with and (suspected) exposure to COVID-19
CPT/HCPCS: 20931; 22551; 22552; 22845; 36415; 71046; 72040; 76000; 80048; 85025; 85610; 85730; 86850; 86900; 88304; 88311; 93005; C1713 ×7; C1768; G0378 ×2; J0131; J0690 ×2; J1100; J1170 ×2; J2001; J2250; J2405 ×2; J2550; J2704; J3010; J3370; J7121 ×2; S0164 ×2; U0002

== ENCOUNTER → 2022-04-19 | Outpatient (CLI) | payer MEDICARE ==
[~2022-04-19] MED LIST changes: +HYDROCODON-ACE1 EA12 PO; +[UNRECOGNIZED DRUG - REMARK] PO
== END ==
LOC: RAD 09:01
PROVIDERS: ATTEND Neurological Surgery
DX: M50.20 Other cervical disc displacement, unspecified cervical region (principal); M43.22 Fusion of spine, cervical region
CPT/HCPCS: 72050

== ENCOUNTER → 2022-11-18 | Outpatient (CLI) | payer MEDICARE | LOC: RAD 13:05 | PROVIDERS: ATTEND Neurological Surgery | DX: M50.20 Other cervical disc displacement, unspecified cervical region (principal); M43.22 Fusion of spine, cervical region | CPT/HCPCS: 72050 ==